=== PATIENT | female | born 1965 | race Caucasian/White ===

== ENCOUNTER 2018-05-16 02:27 | Observation (INO) | payer OTHER ==
[~2018-05-16] VITALS: Ht 170.2 cm; Wt 87.7 kg
[2018-05-16] VITALS (13 sets, daily range): BP systolic 81–132; BP diastolic 39–71
--- NOTE | 2018-05-16 02:47 | ED.ADGEN ---
Adult General Chief Complaint Chief Complaint overdose HPI [facility] Emergency room ears old female who accidentally took extra 5 doses of oxycodone , Fioricet, Motrin , muscle relaxers at 1 AM presented to the emergency department stating she's feeling funny no chest pain shortness of breath no abdominal pain no nausea no vomiting urgency no frequency Review of Systems Review of Systems Constitutional: Denies fever or chills [] Eyes: Denies change in visual acuity, redness, or eye pain [] HENT: Denies nasal congestion or sore throat [] Respiratory: Denies cough or shortness of breath [] Cardiovascular: No additional information not addressed in HPI [] GI: Denies abdominal pain, nausea, vomiting, bloody stools or diarrhea [] : Denies dysuria or hematuria [] Musculoskeletal: Denies back pain or joint pain [] Integument: Denies rash or skin lesions [] Neurologic: Denies headache, focal weakness or sensory changes [] Endocrine: Denies polyuria or polydipsia [] All other systems were reviewed and found to be within normal limits, except as documented in this note. Current Medications Current Medications Current Medications Medications (Trade) Dose Ordered Sig/Vu Start Time Stop Time Status Last Admin Dose Admin Ondansetron HCl (Zofran) 4 mg PRN Q4HRS PRN 05/16/18 03:45 05/17/18 03:44 UNV Sodium Chloride 1,000 ml @ 0 mls/hr Q0M 05/16/18 03:35 05/17/18 03:34 UNV Allergies Allergies Allergies Coded Allergies Type Severity Reaction Last Updated Verified adhesive tape Allergy Intermediate 05/16/18 Yes bacitracin Allergy Intermediate 05/16/18 Yes neomycin Allergy Intermediate 05/16/18 Yes polymyxin B Allergy Intermediate 05/16/18 Yes Physical Exam Physical Exam Constitutional: Well developed, well nourished, no acute distress, non-toxic appearance. [] HENT: Normocephalic, atraumatic, bilateral external ears normal, oropharynx moist, no oral exudates, nose normal. [] Eyes: PERRLA, EOMI, conjunctiva normal, no discharge. [] Neck: Normal range of motion, no tenderness, supple, no stridor. [] Cardiovascular:Heart rate regular rhythm, no murmur [] Lungs & Thorax: Bilateral breath sounds clear to auscultation [] Abdomen: Bowel sounds normal, soft, no tenderness, no masses, no pulsatile masses. [] Skin: Warm, dry, no erythema, no rash. [] Back: No tenderness, no CVA tenderness. [] Extremities: No tenderness, no cyanosis, no clubbing, ROM intact, no edema. [] Neurologic: Alert and oriented X 3, normal motor function, normal sensory function, no focal deficits noted. [] Psychologic: Affect normal, judgement normal, mood normal. [] Current Patient Data Vital Signs Vital Signs Date Time Temp Pulse Resp B/P (MAP) Pulse Ox O2 Delivery O2 Flow Rate FiO2 05/16/18 02:52 98.1 67 24 97 Lab Results Laboratory Tests Test 05/16/18 02:45 White Blood Count 7.3 x10^3/uL (4.0-11.0) Red Blood Count 4.32 x10^6/uL (3.50-5.40) Hemoglobin 13.5 g/dL (12.0-15.5) Hematocrit 39.7 % (36.0-47.0) Mean Corpuscular Volume 92 fL (79-100) Mean Corpuscular Hemoglobin 31 pg (25-35) Mean Corpuscular Hemoglobin Concent 34 g/dL (31-37) Red Cell Distribution Width 13.1 % (11.5-14.5) Platelet Count 277 x10^3/uL (140-400) EKG EKG [] Radiology/Procedures Radiology/Procedures [] Course & Med Decision Making Course & Med Decision Making Pertinent Labs and Imaging studies reviewed. (See chart for details) [] Final Impression Final Impression [] Problems: (1) Accidental overdose Qualifiers: Qualified Codes: T50.901A - Poisoning by unspecified drugs, medicaments and biological substances, accidental (unintentional), initial encounter Dragon Disclaimer Dragon Disclaimer This electronic medical record was generated, in whole or in part, using a voice recognition dictation system. ROSA AHMADI MD May 16, 2018 02:47
[2018-05-16] MEDS ORDERED: IV NORMAL SALINE 1,000ML 1,000 ML IV ONE (03:00)
[2018-05-16] MEDS ORDERED: ONDANSETRON PF 4 MG/2 ML VIAL. IV ONE (03:00)
[2018-05-16 03:35] LABS: HEMATOCRIT 39.7 % (36.0-47.0); HEMOGLOBIN 13.5 g/dL (12.0-15.5); RED BLOOD COUNT 4.32 x10^6/uL (3.50-5.40); RED CELL DISTRIBUTION WIDTH 13.1 % (11.5-14.5); WHITE BLOOD COUNT 7.3 x10^3/uL (4.0-11.0)
[2018-05-16] MEDS ORDERED: ONDANSETRON PF 4 MG/2 ML VIAL. IV PRN (03:45)
[2018-05-16 03:53] LABS: ALBUMIN 4.2 g/dL (3.4-5.0); ALBUMIN/GLOBULIN RATIO 1.3 (1.0-1.7); CALCIUM 9.1 mg/dL (8.5-10.1); CREATININE 0.8 mg/dL (0.6-1.0); GFR 75.6; POTASSIUM 3.9 mmol/L (3.5-5.1); TOTAL BILIRUBIN 0.4 mg/dL (0.2-1.0); TOTAL PROTEIN 7.5 g/dL (6.4-8.2)
[2018-05-16 03:55] LABS: ACETAMIN 12.4 mcg/mL (10-30)
[2018-05-16 03:56] LABS: ETHANOL < 10 mg/dL (0-10)
[2018-05-16] MEDS ORDERED: IV NORMAL SALINE 1,000ML 1,000 ML IV SCH (04:00)
[2018-05-16] MEDS ORDERED: CHARCOAL/SORBITOL 25 GM/120 ML SUSPENSION. PO ONE (04:00)
[2018-05-16 04:31] LABS: BARBITURATES POS (NEG); BENZODIAZEPINES NEG (NEG); CANNABINOIDS NEG (NEG); COCAINE NEG (NEG); METHADONE NEG (NEG); OPIATES POS (NEG); PHENCYCLIDINE NEG (NEG)
[2018-05-16 04:32] LABS: AMPHETAMINE/METHAMPHETAMINE NEG (NEG)
--- NOTE | 2018-05-16 06:35 | EKG ---
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
[2018-05-16] MEDS ORDERED: IBUP800T19 PO (08:48)
[2018-05-16] MEDS ORDERED: TRAZ-86 PO (08:48)
[2018-05-16] MEDS ORDERED: DULO60CA44 PO (08:48)
[2018-05-16] MEDS ORDERED: GABA300C8 PO (08:48)
[2018-05-16] MEDS ORDERED: OXYC10TA PO (08:48)
[2018-05-16] MEDS ORDERED: METO50TA29 PO (08:48)
[2018-05-16] MEDS ORDERED: FLUT16SP21 NS (08:48)
[2018-05-16] MEDS ORDERED: OMEP40CA5 PO (08:48)
[2018-05-16] MEDS ORDERED: MORP30TA3 PO (08:48)
[2018-05-16] MEDS ORDERED: CLON0.5T11 PO (08:48)
[2018-05-16] MEDS ORDERED: METH750T2 PO (08:48)
[2018-05-16] MEDS ORDERED: ASPI-618 PO (08:48)
[2018-05-16] MEDS ORDERED: ALBU2.5V8 INH (08:51)
[2018-05-16] MEDS ORDERED: BUTA1CAP8 PO (08:52)
--- NOTE | 2018-05-16 17:20 | SSS ---
ADMIT DATE: 05/16/2018 HISTORY OF PRESENT ILLNESS: The patient is a 52-year-old female patient, who presented to the Emergency Room, stating that she is feeling funny. She realized that she accidentally took extra 5 doses of oxycodone, Fioricet, Motrin, and methocarbamol at 1:00 a.m. She apparently took the wrong bottle of her medication as she stated. She denied any other complaint, was admitted for close observation. She remained hemodynamically stable. Her lab works were normal and a decision was made to discharge her home to follow with her primary care physician, Dr. Funes and ____ orthopedic surgeon. PAST MEDICAL HISTORY: Significant for TIA, osteoarthritis and Chiari malformation. She apparently had had a suicidal attempt when she was 17 years old. PAST SURGICAL HISTORY: Significant for decompressive surgery at her lumbar and craniocervical junction. ALLERGIES: She is allergic to NEOSPORIN. MEDICATIONS: She is currently on the following medication: Albuterol sulfate 1 puff every 8 hours, methocarbamol 750 mg once a day as needed for muscle spasm, metoprolol succinate 50 mg twice a day, aspirin 81 mg once a day, ibuprofen 800 mg daily p.r.n. for pain. She is on Fioricet 1 tablet every 4-6 hours for migraine headache. She is on morphine sulfate 30 mg extended release twice a day, oxycodone 10 mg as needed, clonazepam 0.5 mg twice a day, gabapentin 300 mg twice a day, duloxetine 60 mg daily, trazodone 100 mg at bedtime, Flonase 1 spray to each nostril twice a day, omeprazole 40 mg at bedtime. FAMILY HISTORY: Apparently positive for heart disease. SOCIAL HISTORY: She is and she has 8 kids. She smokes 2 cigarettes a day, does not drink alcohol or use recreational drugs. 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 PHYSICAL EXAMINATION: GENERAL: When I saw her this afternoon, she was resting slightly propped up in bed, in no apparent distress, awake, alert, responding appropriately. There was no pallor, jaundice, cyanosis, or thyromegaly. No jugular venous distension. No limb edema. VITAL SIGNS: Her heart rate was 78, blood pressure was 132/58, temperature was 97, respiratory rate was 12 and her oxygen saturation was 94% on room air. HEAD, EYES, EARS, NOSE AND THROAT: Showed normocephalic, atraumatic. NECK: Supple. HEART: Showed normal first and second sounds. No gallop, rub or murmur. CHEST: Clear to auscultation. No crepitation or rhonchi. ABDOMEN: Distended, soft, nontender. No guarding or rigidity. No organomegaly. All hernial orifices intact. Bowel sounds normal. NEUROLOGIC: She was awake, alert, responding appropriately. All cranial nerves intact. She ambulates without assistance or assistive devices. LABORATORY DATA: Showed that her white cell count was 7300, hemoglobin 13.5, hematocrit 39.7, MCV 92, and platelet count of 277,000. Serum sodium 138, potassium 3.9, chloride 102, bicarbonate 26, anion gap of 10, BUN 11, creatinine 0.8, estimated GFR was 75 mL per minute. Her glucose was 89, calcium was 9.1. Total bilirubin, AST, ALT, alkaline phosphatase were normal. Total protein was 7.5, albumin 4.2. His toxic screen was positive for opiates as well as barbiturates and was negative for phencyclidine, amphetamine, methamphetamine, benzodiazepine, cocaine, cannabinoids and alcohol. Her nasal screen for MRSA by PCR was negative. She was discharged with continue on albuterol sulfate 1 puff every 8 hours, aspirin 81 mg once a day; Butalbital, acetaminophen, caffeine and codeine 1 every 4-6 hours; clonazepam 0.5 mg twice a day, duloxetine 60 mg daily, Flonase 1 spray to each nostril once a day, gabapentin 300 mg twice a day, ibuprofen 800 mg once a day as needed, methocarbamol 750 mg daily, metoprolol succinate 50 mg twice a day, morphine sulfate 30 mg twice a day, omeprazole 40 mg daily, oxycodone for OxyContin 10 mg as needed, trazodone 100 mg at bedtime. FINAL DISCHARGE DIAGNOSES: Accidental overdose. OTHER MEDICAL PROBLEMS: Chronic pain syndrome, hypertension, migraine headache, peripheral neuropathy, and gastroesophageal reflux disease. JOLYNN ERIC MD DR: YINKA/villa JOB#: [id number] / [id number]
== END 2018-05-16 17:00 | disposition home or self-care (01) ==
LOC: ER 02:27 → ICU 03:45
PROVIDERS: ADMIT Internal Medicine; ATTEND Internal Medicine
DX: T40.2X1A Poisoning by other opioids, accidental (unintentional), initial encounter (principal); F17.210 Nicotine dependence, cigarettes, uncomplicated; M19.90 Unspecified osteoarthritis, unspecified site; G43.909 Migraine, unspecified, not intractable, without status migrainosus; G62.9 Polyneuropathy, unspecified; G89.4 Chronic pain syndrome; I10 Essential (primary) hypertension; K21.9 Gastro-esophageal reflux disease without esophagitis; Z86.73 Personal history of transient ischemic attack (TIA), and cerebral infarction without residual deficits; Y92.89 Other specified places as the place of occurrence of the external cause
CPT/HCPCS: 36415; 80053; 80307; 85027; 87641; 93005; 96374; 99284; 99406; G0378; G0480; G6039; J2405; G0379; 82003; J7030

== ENCOUNTER 2019-02-19 18:25 | Emergency (ER) | payer MEDICAID, OTHER ==
[~2019-02-19] VITALS: Ht 170.2 cm; Wt 87.5 kg
[~2019-02-19 18:25] MED LIST: ALBU2.5V8 INH; ASPI-967 PO; BUTA1CAP8 PO; CLON0.5T4 PO; DULO60CA98 PO; FLUT16SP21 NS; GABA300C8 PO; IBUP800T19 PO; METH750T2 PO; METO50TA29 PO; MORP-16 PO; OMEP40CA45 PO; OXYC10TA PO; TRAZ-86 PO
[2019-02-19] MEDS ORDERED: IV NORMAL SALINE 1,000ML 1,000 ML IV ONE (18:45)
--- NOTE | 2019-02-19 18:49 | PHYS DOC ---
Past History Past Medical History: Arthritis, Bipolar, Other Additional Past Medical Histor: irregular heart, chronic back pain, Arnold Chiari Malformation, Past Surgical History: Hysterectomy, Other Additional Past Surgical Histo: ARNOLD CHIARI MALFORMATION RESECTION, BOWL RESECTION, Additional Smoking Information: " i QUIT A WEEK AGO" Alcohol Use: None Drug Use: None Adult General Chief Complaint Chief Complaint: WEAKNESS/GENERALIZED HPI HPI 53-year-old female presents with generalized weakness and nausea. The patient felt a little under the weather yesterday, but today she has felt worse and worse. She cannot pinpoint her symptoms other than she has been very nauseated and feels like she is weak and "out of it". The patient has not had any medication changes. She does state that she is on morphine ER daily and took 2 additional oxycodone pills around 2 PM because she was feeling so bad. She is on pain medication for chronic back pain. She has not vomited. She denies fever, chills, shortness breath, chest pain, cough, diarrhea, or constipation. Review of Systems Review of Systems Constitutional: Generalized weakness. Denies fever or chills [] Eyes: Denies change in visual acuity, redness, or eye pain [] HENT: Denies nasal congestion or sore throat [] Respiratory: Denies cough or shortness of breath [] Cardiovascular: No additional information not addressed in HPI [] GI: Denies abdominal pain, nausea, vomiting, bloody stools or diarrhea [] : Denies dysuria or hematuria [] Musculoskeletal: Denies back pain or joint pain [] Integument: Denies rash or skin lesions [] Neurologic: Denies headache, focal weakness or sensory changes [] Endocrine: Denies polyuria or polydipsia [] All other systems were reviewed and found to be within normal limits, except as documented in this note. Current Medications Current Medications Current Medications Medications (Trade) Dose Ordered Sig/Vu Start Time Stop Time Status Last Admin Dose Admin Sodium Chloride 1,000 ml @ 1,000 mls/hr 1X ONCE 02/19/19 18:45 02/19/19 19:44 Allergies Allergies Allergies Coded Allergies Type Severity Reaction Last Updated Verified adhesive tape Allergy Intermediate 05/16/18 Yes bacitracin Allergy Intermediate 05/16/18 Yes neomycin Allergy Intermediate 05/16/18 Yes polymyxin B Allergy Intermediate 2/14/19 Yes Physical Exam Physical Exam Constitutional: Well developed, well nourished, no acute distress, non-toxic appearance. [] HENT: Normocephalic, atraumatic, bilateral external ears normal, oropharynx moist, no oral exudates, nose normal. [] Eyes: PERRLA, EOMI, conjunctiva normal, no discharge. [] Neck: Normal range of motion, no tenderness, supple, no stridor. [] Cardiovascular:Heart rate regular rhythm, no murmur [] Lungs & Thorax: Bilateral breath sounds clear to auscultation [] Abdomen: Bowel sounds normal, soft, no tenderness, no masses, no pulsatile masses. [] Skin: Warm, dry, no erythema, no rash. [] Back: No tenderness, no CVA tenderness. [] Extremities: No tenderness, no cyanosis, no clubbing, ROM intact, no edema. [] Neurologic: Alert and oriented X 3, normal motor function, normal sensory function, no focal deficits noted. [] Psychologic: Affect normal, judgement normal, mood normal. [] Current Patient Data Vital Signs Vital Signs Date Time Temp Pulse Resp B/P (MAP) Pulse Ox O2 Delivery O2 Flow Rate FiO2 02/19/19 18:31 97.7 92 16 98 Room Air Lab Results Laboratory Tests Test 02/19/19 18:33 Glucose (Fingerstick) 85 mg/dL (70-99) EKG EKG Sinus rhythm, rate 80, normal axis, no ST elevations or depressions.[] Radiology/Procedures Radiology/Procedures [] Impressions: CT HEAD WO CONTRAST Date: 02/19/2019 6:32 PM Clinical Indication: DIZZY AND WEEK FOR 2 DAYS, HAD A FLU SHOT 3-4 DAYS AGO, HAD A RASH REACTION Comparison: None. Technique: 5 mm axial tomographic images were obtained of the head without contrast. These were viewed on brain and bone windows. One or more of the following dose reduction techniques were utilized: Automated exposure control (AEC), Adjustment of mA and/or kV according to patient size, Use of iterative reconstruction technique such as ASiR, CT scan done according to ALARA and image gently/image wisely Findings: The brain parenchyma is normal in attenuation. No intra- or extra-axial mass or fluid collection. No acute hemorrhage. The ventricles are normal in size, shape, and morphology. The horan-white matter junction is normal. The subarachnoid cisterns are patent. The visualized paranasal sinuses are normal. The visualized portions of the orbits and globes are normal. The mastoid air cells are clear. Postsurgical changes of suboccipital decompression. The nib inspector topogram shows no lytic lesion or fracture. Impression: No acute intracranial process. Electronically signed by: Cordelia Garibay MD (02/19/2019 7:33 PM) [facility] DICTATED AND SIGNED BY: CORDELIA GARIBAY MD DATE: 02/19/191932 CC: YOJANA MALHOTRA DO; SON HOPKINS DO ~ Course & Med Decision Making Course & Med Decision Making Pertinent Labs and Imaging studies reviewed. (See chart for details) The patient's labs are unremarkable. Her head CT is negative for acute findings. Her urinalysis is negative for infection. I do not see a definitive reason for the patient's discomfort. It is possible that she is coming down with a viral illness. It is also possible that the extra pain medication she took today has made her feel more foggy. I do not see any reason to admit the patient. She is stable for discharge at this time. I will discharge her with a prescription for Zofran. [] Dragon Disclaimer Dragon Disclaimer This electronic medical record was generated, in whole or in part, using a voice recognition dictation system. Departure Departure: Impression: Primary Impression: Weakness Disposition: 01 HOME, SELF-CARE Condition: STABLE Referrals: SON HOPKINS DO (PCP) Patient Instructions: Weakness, Nwhx-co-Cevw Scripts Ondansetron (ONDANSETRON ODT) 4 Mg Tab.rapdis 1 TAB PO PRN Q6-8HRS PRN for VOMITING, #16 TAB Prov: YOJANA MALHOTRA DO 02/19/19 YOJANA MALHOTRA DO Feb 19, 2019 18:49
[2019-02-19] MEDS ORDERED: ONDANSETRON PF 4 MG/2 ML VIAL. IVP ONE ×2 (19:00→20:30)
[2019-02-19 19:10] LABS: BASO # 0.1 x10^3/uL (0.0-0.2); BASO % 1 % (0-3); EOS # 0.1 x10^3/uL (0.0-0.7); EOS % 3 % (0-3); HEMATOCRIT 41.5 % (36.0-47.0); LYMPH # 2.2 x10^3/uL (1.0-4.8); LYMPH % 37 % (24-48); MEAN CORPUSCULAR HEMOGLOBIN 31 pg (25-35); MEAN CORPUSCULAR HGB CONC 34 g/dL (31-37); MEAN CORPUSCULAR VOLUME 93 fL (79-100); MONO # 0.5 x10^3/uL (0.0-1.1); MONO % 9 % (0-9); NEUT # 2.9 x10^3uL (1.8-7.7); NEUT % 51 % (31-73); PLATELET COUNT 230 x10^3/uL (140-400); RED BLOOD COUNT 4.49 x10^6/uL (3.50-5.40); RED CELL DISTRIBUTION WIDTH 13.1 % (11.5-14.5); WHITE BLOOD COUNT 5.8 x10^3/uL (4.0-11.0)
[2019-02-19 19:20] LABS: ALBUMIN/GLOBULIN RATIO 1.1 (1.0-1.7); CREATININE 0.7 mg/dL (0.6-1.0); GFR 87.9; POTASSIUM 3.3 mmol/L (3.5-5.1); TOTAL BILIRUBIN 0.3 mg/dL (0.2-1.0); TOTAL PROTEIN 7.5 g/dL (6.4-8.2)
--- NOTE | 2019-02-19 19:36 | RAD ---
CT HEAD WO CONTRAST Date: 02/19/2019 6:32 PM Clinical Indication: DIZZY AND WEEK FOR 2 DAYS, HAD A FLU SHOT 3-4 DAYS AGO, HAD A RASH REACTION Comparison: None. Technique: 5 mm axial tomographic images were obtained of the head without contrast. These were viewed on brain and bone windows. One or more of the following dose reduction techniques were utilized: Automated exposure control (AEC), Adjustment of mA and/or kV according to patient size, Use of iterative reconstruction technique such as ASiR, CT scan done according to ALARA and image gently/image wisely Findings: The brain parenchyma is normal in attenuation. No intra- or extra-axial mass or fluid collection. No acute hemorrhage. The ventricles are normal in size, shape, and morphology. The horan-white matter junction is normal. The subarachnoid cisterns are patent. The visualized paranasal sinuses are normal. The visualized portions of the orbits and globes are normal. The mastoid air cells are clear. Postsurgical changes of suboccipital decompression. The pediatric immunologist topogram shows no lytic lesion or fracture. Impression: No acute intracranial process. Electronically signed by: Partha Garibay MD (02/19/2019 7:33 PM) [facility]
[2019-02-19 19:41] LABS: BARBITURATES NEG (NEG); BENZODIAZEPINES NEG (NEG); CANNABINOIDS NEG (NEG); COCAINE NEG (NEG); METHADONE NEG (NEG); OPIATES POS (NEG); PHENCYCLIDINE NEG (NEG)
[2019-02-19 19:42] LABS: AMPHETAMINE/METHAMPHETAMINE NEG (NEG)
[2019-02-19 19:45] LABS: BACTERIA,URINE 0 /HPF (0-FEW); BILIRUBIN,URINE NEG (NEG); CLARITY,URINE CLEAR; COLOR,URINE YELLOW; GLUCOSE,URINE NEG (NEG); NITRITE,URINE NEG (NEG); RBC,URINE 0 /HPF (0-2); UROBILINOGEN,URINE 0.2 mg/dL (0.2 mg/dL); WBC,URINE 0 /HPF (0-4)
[2019-02-19 19:46] LABS: HYALINE CASTS, URINE OCC /HPF; SQUAMOUS EPITHELIAL CELL,UR OCC /LPF
[2019-02-19] MEDS ORDERED: ONDA4TAB12 PO (20:16)
[2019-02-19 20:27] VITALS: BP 128/59
--- NOTE | 2019-02-20 04:06 | EKG ---
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
== END 2019-02-19 20:34 | disposition home or self-care (01) ==
LOC: ER 18:25
DX: R53.1 Weakness (principal); G89.29 Other chronic pain; M54.89 Other dorsalgia; M19.90 Unspecified osteoarthritis, unspecified site; F31.9 Bipolar disorder, unspecified; Z90.710 Acquired absence of both cervix and uterus; Z87.891 Personal history of nicotine dependence; Z88.1 Allergy status to other antibiotic agents; Z88.8 Allergy status to other drugs, medicaments and biological substances
CPT/HCPCS: 36415; 70450; 80053; 80307; 81001; 82947; 84484; 85025; 93005; 96374; 96376; 99285; J2405; J7030

== ENCOUNTER 2019-03-24 21:09 | Emergency (ER) | payer OTHER ==
[~2019-03-24] VITALS: Ht 170.2 cm; Wt 81.6 kg
[~2019-03-24 21:09] MED LIST changes: +ONDA4TAB12 PO
[2019-03-24] MEDS ORDERED: HYDROcodon/IBUPROFEN 7.5/200MG 1 TAB TABLET PO ONE (22:30)
--- NOTE | 2019-03-24 23:04 | RAD ---
Examination: CT CHEST WO CONTRAST History: Large door fell in the left upper back at work. Pain. Comparison/Correlation: None Findings: Axial images of the chest were obtained without contrast. Sagittal and coronal reformatted images were provided. Tracheobronchial tree is unremarkable. No infiltrate or pleural effusion. No pneumothorax. Bony structures are intact. Visualized upper abdomen is unremarkable. Impression: No acute or other suspicious process. PQRS Compliance Statement: One or more of the following individualized dose reduction techniques were utilized for this examination: 1. Automated exposure control 2. Adjustment of the mA and/or kV according to patient size 3. Use of iterative reconstruction technique Electronically signed by: Yony Castellanos MD (03/24/2019 11:01 PM) [facility]
[2019-03-24 23:10] LABS: BACTERIA,URINE 0 /HPF (0-FEW); BILIRUBIN,URINE NEG (NEG); CLARITY,URINE CLEAR; COLOR,URINE YELLOW; GLUCOSE,URINE NEG (NEG); NITRITE,URINE NEG (NEG); RBC,URINE 0 /HPF (0-2); SQUAMOUS EPITHELIAL CELL,UR OCC /LPF; UROBILINOGEN,URINE 0.2 mg/dL (0.2 mg/dL); WBC,URINE OCC /HPF (0-4)
--- NOTE | 2019-03-24 23:27 | PHYS DOC ---
Past History Past Medical History: Arthritis, Bipolar, Other Additional Past Medical Histor: irregular heart, chronic back pain, Arnold Chiari Malformation, Past Surgical History: Hysterectomy, Other Additional Past Surgical Histo: ARNOLD CHIARI MALFORMATION RESECTION, BOWL RESECTION, Alcohol Use: None Drug Use: None Adult General Chief Complaint Chief Complaint: BACK INJURY.. " .. I was helping move a door on to a [place]ton.. and it fell against my Lt chest wall... and I fell agains my Lt side.. that was this morning.. but I am still hurting bad..." HPI HPI Patient is a 53 year old female who presents with Lt flank and chest wall pain after door fell against her while working at [employer] at approximately 0900 hrs. patient has marked left flank and lower rib cage tenderness. Marked pain on anterior to posterior compression and side to side compression. Patient states pain is increased with deep breaths or cough. There is pain with twisting or bending of left flank. Patient denies other injury. Did file a worker report with [employer]. Review of Systems Review of Systems Constitutional: Denies fever or chills [] Eyes: Denies change in visual acuity, redness, or eye pain [] HENT: Denies nasal congestion or sore throat [] Respiratory: Denies cough or shortness of breath . The patient []complaints of left chest wall and flank pain Cardiovascular: No additional information not addressed in HPI [] GI: Denies abdominal pain, nausea, vomiting, bloody stools or diarrhea [] : Denies dysuria or hematuria [] Musculoskeletal: Denies back pain or joint pain [] Integument: Denies rash or skin lesions [] Neurologic: Denies headache, focal weakness or sensory changes [] Endocrine: Denies polyuria or polydipsia [] All other systems were reviewed and found to be within normal limits, except as documented in this note. Family History Family History Noncontributory Current Medications Current Medications Current Medications Medications (Trade) Dose Ordered Sig/Vu Start Time Stop Time Status Last Admin Dose Admin Hydrocodone Bitartrate/ Ibuprofen (Vicoprofen 7.5-200) 2 tab 1X ONCE 03/24/19 22:30 03/24/19 22:31 DC 03/24/19 22:20 2 TAB Allergies Allergies Allergies Coded Allergies Type Severity Reaction Last Updated Verified adhesive tape Allergy Intermediate 05/16/18 Yes bacitracin Allergy Intermediate 05/16/18 Yes neomycin Allergy Intermediate 05/16/18 Yes polymyxin B Allergy Intermediate 05/16/18 Yes Physical Exam Physical Exam Constitutional: in acute distress, non-toxic appearance. [] HENT: Normocephalic, atraumatic, bilateral external ears normal, oropharynx moist, no oral exudates, nose normal. [] Eyes: PERRLA, EOMI, conjunctiva normal, no discharge. [] Neck: Normal range of motion, no tenderness, supple, no stridor. [] Cardiovascular:Heart rate regular rhythm, no murmur [] Lungs & Thorax: Bilateral breath sounds equal apex on auscultation []marked left chest wall tenderness as per history of present illness Abdomen: Bowel sounds normal, soft, no tenderness, no masses, no pulsatile masses. [] Skin: Warm, dry, no erythema, no rash. [] Back: No tenderness, no CVA tenderness. [] Extremities: No tenderness, no cyanosis, no clubbing, ROM intact, no edema. [] Neurologic: Alert and oriented X 3, normal motor function, normal sensory function, no focal deficits noted. [] Psychologic: Affect anxious, judgement normal, mood normal. [] Current Patient Data Vital Signs Vital Signs Date Time Temp Pulse Resp B/P (MAP) Pulse Ox O2 Delivery O2 Flow Rate FiO2 03/24/19 22:59 93 18 133/77 (95) 98 Room Air 03/24/19 21:28 97.5 Lab Results Laboratory Tests Test 03/24/19 22:15 Urine Collection Type Unknown Urine Color Yellow Urine Clarity Clear Urine pH 6.0 Urine Specific [place] 1.020 Urine Protein Neg (NEG-TRACE) Urine Glucose (UA) Neg mg/dL (NEG) Urine Ketones (Stick) Neg mg/dL (NEG) Urine Blood Neg (NEG) Urine Nitrite Neg (NEG) Urine Bilirubin Neg (NEG) Urine Urobilinogen Dipstick 0.2 mg/dL (0.2 mg/dL) Urine Leukocyte Esterase Neg (NEG) Urine RBC 0 /HPF (0-2) Urine WBC Occ /HPF (0-4) Urine Squamous Epithelial Cells Occ /LPF Urine Bacteria 0 /HPF (0-FEW) EKG EKG [] Radiology/Procedures Radiology/Procedures [][address] [address] IMAGING REPORT Signed PATIENT: MARIA LUISA YOUSSEF ACCOUNT: [id number] : 1965 LOCATION: ER AGE: 53 SEX: F EXAM STATUS: REG ER ORD. PHYSICIAN: TARYN RG MD REASON: Large door fell on left upper back region at work, pain PROCEDURE: CT CHEST WO CONTRAST Examination: CT CHEST WO CONTRAST History: Large door fell in the left upper back at work. Pain. Comparison/Correlation: None Findings: Axial images of the chest were obtained without contrast. Sagittal and coronal reformatted images were provided. Tracheobronchial tree is unremarkable. No infiltrate or pleural effusion. No pneumothorax. Bony structures are intact. Visualized upper abdomen is unremarkable. Impression: No acute or other suspicious process. PQRS Compliance Statement: One or more of the following individualized dose reduction techniques were utilized for this examination: 1. Automated exposure control 2. Adjustment of the mA and/or kV according to patient size 3. Use of iterative reconstruction technique Electronically signed by: Yony Estevez MD (03/24/2019 11:01 PM) [facility] DICTATED AND SIGNED BY: YONY ESTEVEZ MD DATE: 03/24/192300 CC: TARYN RG MD; TERRA BRENNER MD ~ Course & Med Decision Making Course & Med Decision Making Pertinent Labs and Imaging studies reviewed. (See chart for details) Patient use ice packs as needed. Take Tylenol and ibuprofen for pain. For marked pain may take Vicoprofen. Follow-up workmen comp. Return if any concerns. Impression: 1. Chest wall pain-cartilage/muscle tear./Contusion [] Dragon Disclaimer Dragon Disclaimer This electronic medical record was generated, in whole or in part, using a voice recognition dictation system. Departure Departure: Disposition: 01 HOME/RESIDENCE PRIOR TO ADM Condition: STABLE Referrals: TERRA BRENNER MD (PCP) Scripts Hydrocodone/Ibuprofen (HYDROCODONE-IBUPROFEN 7.5-200 ) 1 Each Tablet 1 TAB PO PRN Q6HRS PRN for PAIN, #30 TAB 0 Refills Prov: TARYN RG MD 03/24/19 Dragon Disclaimer This chart was dictated in whole or in part using Voice Recognition software in a busy, high-work load, and often noisy Emergency Department environment. It may contain unintended and wholly unrecognized errors or omissions. TARYN RG MD Mar 24, 2019 23:27
[2019-03-24] MEDS ORDERED: HYDR-1179 PO (23:29)
[2019-03-24 23:30] VITALS: BP 117/72
--- NOTE | 2019-03-25 03:41 | RAD ---
Exam: Chest 2 views INDICATION: Injury TECHNIQUE: Frontal and lateral views the chest Comparisons: None FINDINGS: The cardiomediastinal silhouette and pulmonary vessels are within normal limits. The lung and pleural spaces are clear. IMPRESSION: No acute cardiopulmonary process. Electronically signed by: Diana Boyd MD (03/25/2019 3:38 AM) [facility]
== END 2019-03-24 23:46 | disposition home or self-care (01) ==
LOC: ER 21:09
DX: R07.89 Other chest pain (principal); R10.9 Unspecified abdominal pain; R05 Cough; M19.90 Unspecified osteoarthritis, unspecified site; F31.9 Bipolar disorder, unspecified; G89.29 Other chronic pain; Z90.710 Acquired absence of both cervix and uterus; Z88.1 Allergy status to other antibiotic agents; Z88.8 Allergy status to other drugs, medicaments and biological substances; W20.8XXA Other cause of strike by thrown, projected or falling object, initial encounter; Y93.89 Activity, other specified; Y92.89 Other specified places as the place of occurrence of the external cause; Y99.8 Other external cause status
CPT/HCPCS: 71046; 71250; 81001; 99284-25

== ENCOUNTER 2019-09-28 19:41 | Emergency (ER) | payer OTHER ==
[~2019-09-28] VITALS: Ht 170.2 cm; Wt 78.0 kg
[~2019-09-28 19:41] MED LIST changes: +HYDR-1179 PO; +TRAZ-125 PO; -TRAZ-86 PO
[2019-09-28 20:16] VITALS: BP 126/64
[2019-09-28] MEDS ORDERED: LIDOCAINE 1%/EPI 1:100,000 20 ML VIAL. IJ ONE (20:45)
--- NOTE | 2019-09-28 20:45 | PHYS DOC ---
Past History Past Medical History: Hypertension, Other Additional Past Medical Histor: Chiari malformation Past Surgical History: Hysterectomy, Other Additional Past Surgical Histo: lumbar fusion; gastric resection Alcohol Use: Rarely Drug Use: None General Adult EDM: Chief Complaint: LACERATION/AVULSION HPI: HPI: 54-year-old female presents with right foot laceration. She was cutting a patch for a pool when she slipped and had a utility knife cut the top of her left foot. It bled, but was controlled with direct pressure. It is still an open wound. Her tetanus is not up-to-date. She denies any other injuries or complaints at this time. Review of Systems: Review of Systems: Constitutional: Denies fever or chills Eyes: Denies change in visual acuity HENT: Denies nasal congestion or sore throat Respiratory: Denies cough or shortness of breath Cardiovascular: Denies chest pain or edema GI: Denies abdominal pain, nausea, vomiting, bloody stools or diarrhea : Denies dysuria Musculoskeletal: Denies back pain or joint pain Integument: Laceration left foot Neurologic: Denies headache, focal weakness or sensory changes Endocrine: Denies polyuria or polydipsia Lymphatic: Denies swollen glands Psychiatric: Denies depression or anxiety Heart Score: Risk Factors: Risk Factors: DM, Current or recent (<one month) smoker, HTN, HLP, family history of CAD, obesity. Risk Scores: Score 0 - 3: 2.5% MACE over next 6 weeks - Discharge Home Score 4 - 6: 20.3% MACE over next 6 weeks - Admit for Clinical Observation Score 7 - 10: 72.7% MACE over next 6 weeks - Early Invasive Strategies Allergies: Allergies: Allergies Coded Allergies Type Severity Reaction Last Updated Verified adhesive tape Allergy Intermediate 05/16/18 Yes bacitracin Allergy Intermediate 05/16/18 Yes neomycin Allergy Intermediate 05/16/18 Yes polymyxin B Allergy Intermediate 05/16/18 Yes Physical Exam: PE: Constitutional: Well developed, well nourished, no acute distress, non-toxic appearance. [] HENT: Normocephalic, atraumatic, bilateral external ears normal, oropharynx moist, no oral exudates, nose normal. [] Eyes: PERRLA, EOMI, conjunctiva normal, no discharge. [] Neck: Normal range of motion, no tenderness, supple, no stridor. [] Cardiovascular:Heart rate regular rhythm, no murmur [] Lungs & Thorax: Bilateral breath sounds clear to auscultation [] Abdomen: Bowel sounds normal, soft, no tenderness, no masses, no pulsatile masses. [] Skin: 2.5 cm linear laceration of the right dorsal foot [] Back: No tenderness, no CVA tenderness. [] Extremities: No tenderness, no cyanosis, no clubbing, ROM intact, no edema. [] Neurologic: Alert and oriented X 3, normal motor function, normal sensory function, no focal deficits noted. [] Psychologic: Affect normal, judgement normal, mood normal. [] Current Patient Data: Vital Signs: Vital Signs Date Time Temp Pulse Resp B/P (MAP) Pulse Ox O2 Delivery O2 Flow Rate FiO2 09/28/19 20:16 98.4 68 16 126/64 (84) 100 Room Air EKG: EKG: [] Radiology/Procedures: Radiology/Procedures: [] Course & Med Decision Making: Course & Med Decision Making Pertinent Labs and Imaging studies reviewed. (See chart for details) I repaired the patient's laceration with sutures. See note below for more details. Her tetanus was updated. She is stable for discharge at this time. [] Dragon Disclaimer: Dragon Disclaimer: This electronic medical record was generated, in whole or in part, using a voice recognition dictation system. Laceration Repair Lac Repair Indication: [] 2.5 cm linear laceration of the right foot Procedure: Verbal consent was obtained from the patient for suture repair of her laceration. It was thoroughly cleansed with normal saline under pressure. No foreign bodies were found. The wound was anesthetized with 1% lidocaine with epinephrine. 1.5 cc was used. Once good anesthesia was achieved, the wound was closed with five 3-0 Ethilon sutures in an interrupted fashion. Bleeding was controlled. There was good skin approximation. Total repaired wound length: 2.5 cm Other Items: None The patient tolerated the procedure well Complications: None Departure Departure: Impression: Primary Impression: Laceration of right foot Qualified Codes: S91.311A - Laceration without foreign body, right foot, initial encounter Disposition: HOME/RESIDENCE PRIOR TO ADM Condition: STABLE Referrals: TERRA BRENNER MD (PCP) Patient Instructions: Laceration Care, Adult, [id number] Justification of Admission: Justification of Admission: Justification of Admission Dx: N/A YOJANA MALHOTRA DO Sep 28, 2019 20:45
[2019-09-28] MEDS ORDERED: DIPH,PERTUSS(ACELL),TET VAC/PF 0.5 ML SYRINGE. VAX IM ONE (21:30)
== END 2019-09-28 21:45 | disposition home or self-care (01) ==
LOC: ER 19:41
DX: S91.311A Laceration without foreign body, right foot, initial encounter (principal); I10 Essential (primary) hypertension; Z88.1 Allergy status to other antibiotic agents; Z88.8 Allergy status to other drugs, medicaments and biological substances; W26.0XXA Contact with knife, initial encounter; Y93.89 Activity, other specified; Y92.89 Other specified places as the place of occurrence of the external cause; Y99.8 Other external cause status
CPT/HCPCS: 12001; 90471; 90715; 99283

== ENCOUNTER 2020-07-04 02:11 | Emergency (ER) | payer OTHER ==
[~2020-07-04] VITALS: Ht 170.2 cm; Wt 83.7 kg
[~2020-07-04 02:11] MED LIST changes: +METH-560 PO; -METH750T2 PO
--- NOTE | 2020-07-04 02:41 | PHYS DOC ---
Past History Past Medical History: Hypertension, Other Additional Past Medical Histor: Chiari malformation Past Surgical History: Hysterectomy, Other Additional Past Surgical Histo: lumbar fusion; gastric resection, BRAIN SX Alcohol Use: Rarely Drug Use: None General Adult EDM: Chief Complaint: MECHANICAL FALL HPI: HPI: ".. I don't remember .. anything... ".." I was drunk.. ".. " I guess I tripped and fell..." Patient is a 54 year old female who presents with above hx and complaints of trip and fall. 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 Upon returning home patient had a trip and fall striking her head and pelvis area. Patient did not have a prolonged period of unconscious but has retrograde and anterior grade amnesia since striking her head. Patient does have some upper neck tenderness. Patient also complaining of some discomfort in left shoulder. Patient also has significant pain in pelvic area and a 12 x 8 cm hematoma of left labia. Patient was a ambulatory with a pelvic discomfort. Currently patient denies any other injury. Patient did observe the fall. Advised struck her head and had twisting motion which resulted in the straddle or contusion to labia area. Patient does not normally drink alcohol. No history immunosuppression. No history of travel. No history of ill contacts. Did recently have left shoulder surgery. Patient normally follows with Dr. Brenner Review of Systems: Review of Systems: Constitutional: Denies fever or chills Eyes: Denies change in visual acuity HENT: Complains of headache Respiratory: Denies cough or shortness of breath Cardiovascular: Denies chest pain or edema GI: Denies abdominal pain, nausea, vomiting, bloody stools or diarrhea : Denies dysuria Musculoskeletal: Complains of pelvic pain Integument: Denies rash Neurologic: Denies headache, focal weakness or sensory changes Endocrine: Denies polyuria or polydipsia Lymphatic: Denies swollen glands Psychiatric: Denies depression or anxiety Family History: Family History: Noncontributory to presentation Current Medications: Current Meds: See nursing for home meds Allergies: Allergies: Allergies Coded Allergies Type Severity Reaction Last Updated Verified adhesive tape Allergy Intermediate 05/16/18 Yes bacitracin Allergy Intermediate 05/16/18 Yes neomycin Allergy Intermediate 05/16/18 Yes polymyxin B Allergy Intermediate 05/16/18 Yes Physical Exam: PE: Constitutional: inacute distress, very intoxicated in appearance. [] HENT: Normocephalic, contusion to posterior scalp, bilateral external ears normal, oropharynx moist, no oral exudates, nose normal. [] Eyes: PERRLA, EOMI, conjunctiva normal, no discharge. [] Neck: Normal range of motion, upper neck tenderness, supple, no stridor. [] Cardiovascular:Heart rate regular rhythm, no murmur [] Lungs & Thorax: Bilateral breath sounds equal at apex with some scattered wheezes on auscultation [] Abdomen: Bowel sounds normal, soft, no tenderness, no masses, no pulsatile masses. Obese. Old surgery scars. Skin: Warm, dry, no erythema, no rash. Large hematoma contusion left labia and groin Back: No tenderness, no CVA tenderness. Old surgical scar lumbar sacral area Extremities: No tenderness, no cyanosis, no clubbing, ROM intact, no edema. L eft shoulder scar Neurologic: Alert and oriented X 3, moves all extremities on request, is ambulatory, does have distal sensory , no focal deficits noted. Patient does appear intoxicated. Psychologic: Affect anxious, judgement normal, mood normal. [] Current Patient Data: Vital Signs: Vital Signs Date Time Temp Pulse Resp B/P (MAP) Pulse Ox O2 Delivery O2 Flow Rate FiO2 07/04/20 02:30 98.6 85 18 95/41 (59) 95 Room Air EKG: EKG: My interpretation of EKG shows a sinus rhythm at 7 1 beats per minute. No findings of acute morphology] Radiology/Procedures: Radiology/Procedures: [address] [address] IMAGING REPORT Signed PATIENT: MARIA LUISA YOUSSEF ACCOUNT: [id number] : 1965 LOCATION: ER AGE: 54 SEX: F EXAM STATUS: REG ER ORD. PHYSICIAN: TARYN RG MD REASON: fall PROCEDURE: PORTABLE CHEST 1V XR CHEST 1V History: Reason: fall / Spl. Instructions: / History: Pain Comparison: March 24, 2019 Findings: No consolidation or pleural effusion. Normal heart size. No pneumothorax. Mixed lytic and sclerotic lesion within the left humeral head measures 1 cm. Impression: 1. No acute cardiopulmonary process. 2. Left humeral head mixed lytic and sclerotic lesion, may relate to degenerative changes or other benign fibro-osseous lesion. If persistent clinical concern for malignancy, MRI can better evaluate. Electronically signed by: Alessio Mohamud DO (07/04/2020 5:01 AM) [facility] DICTATED AND SIGNED BY: ALESSIO MOHAMUD DO DATE: 07/04/20 0458 CC: TARYN RG MD; TERRA BRENNER MD ~MTH0 [address] [place] [address] IMAGING REPORT Signed PATIENT: MARIA LUISA YOUSSEF ACCOUNT: [id number] : 1965 LOCATION: ER AGE: 54 SEX: F EXAM STATUS: REG ER ORD. PHYSICIAN: TARYN RG MD REASON: fall and head injury PROCEDURE: CT HEAD AND CERVICAL SPINE WO CT HEAD AND C-SPINE WO History: Reason: fall and head injury / Spl. Instructions: / History: . Pain Comparison: February 19, 2019 Technique: Noncontrast CT imaging was performed of the head and cervical spine. Coronal and sagittal reconstructions were performed. Exposure: One or more of the following individualized dose reduction techniques were utilized for this examination: 1. Automated exposure control 2. Adjustment of the mA and/or kV according to patient size 3. Use of iterative reconstruction technique. Findings: Head CT: No intracranial hemorrhage. No mass effect. No hydrocephalus. Postoperative changes suboccipital craniectomy. Crowding of the cerebellar tonsils at the foramen magnum, unchanged. Imaged orbits are unremarkable. Imaged paranasal sinuses and mastoid air cells are clear. No acute calvarial fracture. Cervical spine CT: Slight grade 1 anterolisthesis C4 on C5. Normal vertebral body height. No fracture. Multilevel extensive disc changes most prominent C4-C5 and C5-C6. Facet arthropathy, left greater than right. No high-grade canal stenosis. Multilevel neuroforaminal narrowing. Soft tissues unremarkable. Impression: Head CT: 1. No acute intracranial abnormality. Cervical spine CT: 1. No acute fracture or subluxation of the cervical spine. Electronically signed by: Alessio Mohamud DO (07/04/2020 4:53 AM) [facility] DICTATED AND SIGNED BY: ALESSIO MOHAMUD DO DATE: 07/04/20446 CC: TARYN RG MD; TERRA BRENNER MD ~MTH0 0 [][place] [address] IMAGING REPORT Signed PATIENT: MARIA LUISA YOUSSEF ACCOUNT: [id number] : 1965 LOCATION: ER AGE: 54 SEX: F EXAM STATUS: REG ER ORD. PHYSICIAN: TARYN RG MD REASON: fall and head injury, lower pelvis pain PROCEDURE: CT PELVIS WO CONTRAST CT PELVIS WO History: Reason: fall and head injury, lower pelvis pain / Spl. Instructions: / History: Comparison: None. Technique: Noncontrast CT imaging was performed of the pelvis. Coronal and sagittal reconstructions were performed. Exposure: One or more of the following individualized dose reduction techniques were utilized for this examination: 1. Automated exposure control 2. Adjustment of the mA and/or kV according to patient size 3. Use of iterative reconstruction technique. Findings: No dislocation. No acute fracture. Posterior stabilization L4-S1 with interbody fusion and lateral mass graft. Postoperative changes small bowel. Mild distention of the urinary bladder. Prior hysterectomy. Impression: 1. No acute osseous abnormality. Electronically signed by: Alessio Mohamud DO (07/04/2020 4:58 AM) [facility] DICTATED AND SIGNED BY: ALESSIO MOHAMUD DO DATE: 07/04/20452 CC: TARYN RG MD; TERRA BRENNER MD ~MTH0 0 Heart Score: C/O Chest Pain: N/A HEART Score for Chest Pain: HEART Score for Chest Pain Response (Comments) Value History Slighlty/Non-Suspicious 0 ECG Normal 0 Age >45 - < 65 1 Risk Factors 1 or 2 Risk Factors 1 Troponin < Normal Limit 0 Total 2 Risk Factors: Risk Factors: DM, Current or recent (<one month) smoker, HTN, HLP, family history of CAD, obesity. Risk Scores: Score 0 - 3: 2.5% MACE over next 6 weeks - Discharge Home Score 4 - 6: 20.3% MACE over next 6 weeks - Admit for Clinical Observation Score 7 - 10: 72.7% MACE over next 6 weeks - Early Invasive Strategies Course & Med Decision Making: Course & Med Decision Making Pertinent Labs and Imaging studies reviewed. (See chart for details) Patient is to avoid further alcohol in the next few days. Follow-up primary care. Return if you vomit more than twice. Stay with someone can check on your wellbeing. Must follow-up with primary care. Consider MRI or biopsy of lytic lesion on right shoulder, this may be residual scarring from prior left shoulder surgery approximately a month ago. Should be able to compare this site with previous shoulder x-rays. The hematoma on left labia may need to be aspirated if it does not resolve in the next week. Advised patient hematomas of the labia can become infected so site of hematoma to be monitored frequently for any signs of infection. to monitor for any mental status changes. If patient vomits more than twice to return to the ER for reevaluation. Impression: 1. Alcohol intoxication = 256 2. Head injury-concussion 3. Large hematoma left labia [] Jasmine Disclaimer: Jasmine Disclaimer: This electronic medical record was generated, in whole or in part, using a voice recognition dictation system. Departure Departure: Referrals: TERRA BRENNER MD (PCP) Jasmine Disclaimer This chart was dictated in whole or in part using Voice Recognition software in a busy, high-work load, and often noisy Emergency Department environment. It may contain unintended and wholly unrecognized errors or omissions. TARYN RG MD Jul 04, 2020 02:41
[2020-07-04] MEDS ORDERED: IV RINGERS SOLUTION,LACTATED 1,000 ML IV SCH (02:45)
[2020-07-04 03:13] LABS: BASO % 1 % (0-3); EOS # 0.2 x10^3/uL (0.0-0.7); EOS % 3 % (0-3); HEMOGLOBIN 12.2 g/dL (12.0-15.5); LYMPH # 2.3 x10^3/uL (1.0-4.8); LYMPH % 32 % (24-48); MEAN CORPUSCULAR HEMOGLOBIN 32 pg (25-35); MEAN CORPUSCULAR HGB CONC 34 g/dL (31-37); MEAN CORPUSCULAR VOLUME 95 fL (79-100); MONO # 0.6 x10^3/uL (0.0-1.1); MONO % 8 % (0-9); NEUT % 57 % (31-73); PLATELET COUNT 261 x10^3/uL (140-400); RED BLOOD COUNT 3.78 x10^6/uL (3.50-5.40); RED CELL DISTRIBUTION WIDTH 12.7 % (11.5-14.5); WHITE BLOOD COUNT 7.1 x10^3/uL (4.0-11.0)
[2020-07-04 03:22] LABS: ANION GAP 10 (6-14); BLOOD UREA NITROGEN 10 mg/dL (7-20); CALCIUM 9.2 mg/dL (8.5-10.1); CARBON DIOXIDE 28 mmol/L (21-32); CHLORIDE 105 mmol/L (98-107); CREATININE 0.7 mg/dL (0.6-1.0); GFR 87.5; GLUCOSE 107 mg/dL (70-99); POTASSIUM 3.5 mmol/L (3.5-5.1); SODIUM 143 mmol/L (136-145)
[2020-07-04 03:34] LABS: ALBUMIN 3.8 g/dL (3.4-5.0); ALK PHOS 109 U/L (46-116); ALT (SGPT) 23 U/L (14-59); AST (SGOT) 14 U/L (15-37); LIPASE 323 U/L (73-393); TOTAL BILIRUBIN 0.2 mg/dL (0.2-1.0); TOTAL PROTEIN 6.5 g/dL (6.4-8.2)
[2020-07-04 03:38] LABS: DIRECT BILIRUBIN < 0.1 mg/dL (0.0-0.2)
[2020-07-04 04:06] LABS: BACTERIA,URINE 0 /HPF (0-FEW); BILIRUBIN,URINE NEG (NEG); CLARITY,URINE CLEAR; COLOR,URINE YELLOW; GLUCOSE,URINE NEG (NEG); NITRITE,URINE NEG (NEG); RBC,URINE 0 /HPF (0-2); SQUAMOUS EPITHELIAL CELL,UR OCC /LPF; UROBILINOGEN,URINE 0.2 mg/dL (0.2 mg/dL); WBC,URINE RARE /HPF (0-4)
[2020-07-04 04:07] LABS: BARBITURATES NEG (NEG); BENZODIAZEPINES NEG (NEG); CANNABINOIDS NEG (NEG); COCAINE NEG (NEG); METHADONE NEG (NEG); OPIATES POS (NEG); PHENCYCLIDINE NEG (NEG)
[2020-07-04 04:22] LABS: AMPHETAMINE/METHAMPHETAMINE NEG (NEG)
--- NOTE | 2020-07-04 04:56 | RAD ---
CT HEAD AND C-SPINE WO History: Reason: fall and head injury / Spl. Instructions: / History: . Pain Comparison: February 19, 2019 Technique: Noncontrast CT imaging was performed of the head and cervical spine. Coronal and sagittal reconstructions were performed. Exposure: One or more of the following individualized dose reduction techniques were utilized for thi s examination: 1. Automated exposure control 2. Adjustment of the mA and/or kV according to patient size 3. Use of iterative reconstruction technique. Findings: Head CT: No intracranial hemorrhage. No mass effect. No hydrocephalus. Postoperative changes subocci pital craniectomy. Crowding of the cerebellar tonsils at the foramen magnum, unchanged. Imaged orbits are unremarkable. Imaged paranasal sinuses and mastoid air cells are clear. No acute ca lvarial fracture. Cervical spine CT: Slight grade 1 anterolisthesis C4 on C5. Normal vertebral body height. No fracture. Multilevel extensive disc changes most prominent C4-C5 and C5-C6. Facet arthropathy, left greater rina n right. No high-grade canal stenosis. Multilevel neuroforaminal narrowing. Soft tissues unremarkable. Impression: Head CT: 1. No acute intracranial abnormality. Cervical spine CT: 1. No acute fracture or subluxation of the cervical spine. Electronically signed by: Alessio Mohamud DO (07/04/2020 4:53 AM) [facility]
--- NOTE | 2020-07-04 05:01 | RAD ---
CT PELVIS WO History: Reason: fall and head injury, lower pelvis pain / Spl. Instructions: / History: Comparison: None. Technique: Noncontrast CT imaging was performed of the pelvis. Coronal and sagittal reconstructions w ere performed. Exposure: One or more of the following individualized dose reduction techniques were utilized for thi s examination: 1. Automated exposure control 2. Adjustment of the mA and/or kV according to patient size 3. Use of iterative reconstruction technique. Findings: No dislocation. No acute fracture. Posterior stabilization L4-S1 with interbody fusion and lateral ma ss graft. Postoperative changes small bowel. Mild distention of the urinary bladder. Prior hysterectomy. Impression: 1. No acute osseous abnormality. Electronically signed by: Alessio Mohamud DO (07/04/2020 4:58 AM) [facility]
--- NOTE | 2020-07-04 05:04 | RAD ---
XR CHEST 1V History: Reason: fall / Spl. Instructions: / History: Pain Comparison: March 24, 2019 Findings: No consolidation or pleural effusion. Normal heart size. No pneumothorax. Mixed lytic and sclerotic lesion within the left humeral head measures 1 cm. Impression: 1. No acute cardiopulmonary process. 2. Left humeral head mixed lytic and sclerotic lesion, may relate to degenerative changes or other b enign fibro-osseous lesion. If persistent clinical concern for malignancy, MRI can better evaluate. Electronically signed by: Alessio Mohamud DO (07/04/2020 5:01 AM) [facility]
[2020-07-04 05:22] VITALS: BP 98/52
--- NOTE | 2020-07-04 06:26 | EKG ---
[address] [address] Test Date: 2020-07-04 Test Time: 02:54:49 Pat Name: MARIA LUISA YOUSSEF Department: Room: Gender: F [employer]: : 1965 Requested By: TARYN RG Order Number: [id number] Reading MD: Measurements Intervals [place] Rate: 71 P: 49 ME: 186 QRS: 45 QRSD: 78 T: 31 QT: 400 QTc: 435 Interpretive Statements SINUS RHYTHM NORMAL ECG RI6.02 No previous ECG available for comparison
== END 2020-07-04 05:25 | disposition home or self-care (01) ==
LOC: ER 02:11
DX: S06.0X0A Concussion without loss of consciousness, initial encounter (principal); S80.12XA Contusion of left lower leg, initial encounter; F10.129 Alcohol abuse with intoxication, unspecified; I10 Essential (primary) hypertension; Z88.8 Allergy status to other drugs, medicaments and biological substances; Z88.1 Allergy status to other antibiotic agents; Y90.8 Blood alcohol level of 240 mg/100 ml or more; W01.198A Fall on same level from slipping, tripping and stumbling with subsequent striking against other object, initial encounter; Y93.89 Activity, other specified; Y92.89 Other specified places as the place of occurrence of the external cause; Y99.8 Other external cause status
CPT/HCPCS: 36415; 70450; 71045; 72125; 72192; 80048; 80076; 80307; 81001; 82550; 83690; 83735; 83880; 84484; 85025; 85610; 85730; 93005; 96361; 96374; 99285; G0480; J3010; J7120

== ENCOUNTER → 2021-03-09 | Outpatient (CLI) | payer MEDICARE ==
[~2021-03-09] MED LIST changes: -OMEP40CA45 PO; +OMEP40CA7 PO
--- NOTE | 2021-03-10 10:59 | RAD ---
CT scan of the thoracic spine without contrast 03/09/2021 CLINICAL HISTORY: Mid back pain. TECHNIQUE: Unenhanced contiguous, 0.625 mm axial sections were obtained from the thoracic spine. 3 mm reconstructed sagittal, axial and coronal images were obtained. One or more of the following individualized dose reduction techniques were utilized for this study: 1. Automated exposure control. 2. Adjustment of the mA and/or kV according to patient size. 3. Use of iterative reconstruction technique. FINDINGS: Comparison is made to CT thoracic myelogram performed [facility] melecio ed 01/03/2018. Sagittal and coronal reconstructed images demonstrate minimal S-shaped curvature of the thoracolumbar spine. The patient is post laminectomy at T9 and T10-11. Spinal stimulator leads are seen within the posterior epidural space extending from T9-10 to T8-9. Degenerative changes consisting of varying de grees of disc space narrowing, vertebral endplate sclerosis and mild to moderate anterolateral verteb ral body osteophyte formation are seen involving the thoracic disc spaces. Degenerative changes are seen involving the thoracic disc spaces consisting of minimal to mild genera lized disc bulges and degenerative changes involving the facet joints. These findings do not result i n significant central spinal canal stenosis at any level. Moderate left neural foraminal stenosis is seen at T10-11. These findings are unchanged. IMPRESSION: Degenerative changes are seen involving the thoracic spine as discussed above. These find ings do not result in significant central spinal canal stenosis at any level. Moderate left neural fo raminal stenosis is seen at T10-11, unchanged. Electronically signed by: Willie Casas MD (03/10/2021 10:57 AM) [id number]
== END ==
LOC: CT 13:18
PROVIDERS: ATTEND Neurological Surgery
DX: M47.24 Other spondylosis with radiculopathy, thoracic region (principal); M48.02 Spinal stenosis, cervical region; M25.78 Osteophyte, vertebrae; T85.192A Other mechanical complication of implanted electronic neurostimulator of spinal cord electrode (lead), initial encounter; Y83.8 Other surgical procedures as the cause of abnormal reaction of the patient, or of later complication, without mention of misadventure at the time of the procedure; Y92.89 Other specified places as the place of occurrence of the external cause
CPT/HCPCS: 72128